=== PATIENT | female | born 1975 | race Two or more races ===

== ENCOUNTER 2020-11-19 23:20 | Emergency (ER) | payer MEDICAID, OTHER ==
[~2020-11-19] VITALS: Ht 160 cm; Wt 74.4 kg
[2020-11-19 23:58] LABS: Basophils # (auto) 0.1 10 ^3/uL (0-0.2); Basophils % (auto) 0.7 % (0.0-2.0); Eosinophils # (auto) 0.2 10 ^3/uL (0-0.8); Eosinophils % (auto) 1.9 % (0.0-7.0); Hematocrit 37.1 % (36.0-46.0); Hemoglobin 12.7 g/dL (12.2-16.2); Lymphocytes # (auto) 3.3 10 ^3/uL (0.4-5.4); Lymphocytes % (auto) 34.2 % (10.0-50.0); Mean Corpuscular Hemoglobin 29.3 pg (28.0-32.0); Mean Corpuscular Hgb Conc. 34.3 g/dL (32.0-36.0); Mean Corpuscular Volume 85.6 fL (80.0-100.0); Monocytes # (auto) 0.5 10 ^3/uL (0-1.3); Monocytes % (auto) 5.6 % (0.0-12.0); Neutrophils # (auto) 5.6 10 ^3/uL (1.6-8.6); Neutrophils % (auto) 57.6 % (37.0-80.0); Platelet Count (auto) 406 10^3/uL (140-450); Red Blood Cells 4.34 10^6/uL (4.0-5.20); Red Cell Distribution Width 13.2 % (11.8-14.3); White Blood Cell 9.7 10^3/uL (4.4-10.8)
[2020-11-20 00:17] LABS: Alanine Aminotransferase 19 U/L (13-56); Albumin 2.9 g/dL (3.4-5.0); Anion Gap 7 (5-15); Aspartate Aminotransferase 10 U/L (15-37); BUN/Creatinine Ratio 15.7; Blood Urea Nitrogen 13 mg/dL (7-18); Calcium 8.4 mg/dL (8.5-10.1); Carbon Dioxide 26 mmol/L (21-32); Chloride 100 mmol/L (98-107); GFR African American 95 mL/min; GFR Non-African American 78 mL/min; Magnesium 2.1 mg/dL (1.6-2.6); Potassium 3.8 mmol/L (3.5-5.1); Sodium 133 mmol/L (136-145)
[2020-11-20 00:22] LABS: Alkaline Phosphatase 130 U/L (45-117); Bilirubin, Total 0.1 mg/dL (0.2-1.0); Total Protein 7.7 g/dL (6.4-8.2)
[2020-11-20 00:47] LABS: Glucose 458 mg/dL (74-106)
[2020-11-20] MEDS ORDERED: SODIUM CHLORIDE 0.9% 2,000 ML IV ONE (01:15)
[2020-11-20] MEDS ORDERED: InsuLIN REG 1unit/0.01ml Soln (100units/ml) SC ONE (01:15)
[2020-11-20] MEDS ORDERED: HYDROcodone-ACET 5/325MG TAB PO ONE (01:30)
[2020-11-20] MEDS ORDERED: cloNIDine HCL 0.1 MG TAB PO ONE ×2 (02:00→04:00)
[2020-11-20 03:12] LABS: Urine Bacteria NONE SEEN /hpf (None Seen); Urine Blood TRACE /uL (Negative); Urine Specific Gravity 1.037 (1.001-1.035); Urine WBC 2 /hpf (0 - 5)
[2020-11-20] MEDS ORDERED: IOHEXOL 300 MG/ML 100ML BOTTLE IJ ONE (07:51)
[2020-11-20 10:21] VITALS: BP 142/68
== END 2020-11-20 10:25 | disposition home or self-care (01) ==
LOC: ER 23:22
DX: R51.9 Headache, unspecified (principal); E11.65 Type 2 diabetes mellitus with hyperglycemia; I16.1 Hypertensive emergency; I10 Essential (primary) hypertension; E78.5 Hyperlipidemia, unspecified
CPT/HCPCS: 36415; 70450; 70460; 71045; 80053; 81001; 82962; 83735; 83880; 84484; 85025; 85049; 93005; 96360; 96361; 96372; 99285; J1815; J7030; Q9967

== ENCOUNTER 2021-12-07 10:53 | Emergency (ER) | payer MEDICAID ==
[~2021-12-07] VITALS: Ht 157.5 cm; Wt 73.7 kg
[2021-12-07 13:07] VITALS: BP 163/79
[2021-12-07] MEDS ORDERED: cefTRIAXone SOD 1,000 MG VL IM ONE (13:45)
[2021-12-07] MEDS ORDERED: HYDROcodone-ACET 5/325MG TAB PO ONE (13:45)
[2021-12-07] MEDS ORDERED: ONDANSETRON ODT 4 MG TAB PO ONE (13:45)
[2021-12-07] MEDS ORDERED: ACE3T PO (14:05)
[2021-12-07] MEDS ORDERED: CEPH-509 PO (14:05)
[2021-12-07] MEDS ORDERED: CYCL-837 PO (14:05)
== END 2021-12-07 14:31 | disposition home or self-care (01) ==
LOC: ER 10:53
DX: S20.211A Contusion of right front wall of thorax, initial encounter (principal); L03.115 Cellulitis of right lower limb; W01.0XXA Fall on same level from slipping, tripping and stumbling without subsequent striking against object, initial encounter; Y93.89 Activity, other specified; Y92.89 Other specified places as the place of occurrence of the external cause; Y99.8 Other external cause status
CPT/HCPCS: 71101; 73630; 96372; 99284; J0696; Q0162

== ENCOUNTER 2024-09-28 09:36 | Day surgery (SDC) | payer OTHER, MEDICAID ==
[2024-09-25 15:22] LABS: Urine Bacteria MANY /hpf (None Seen); Urine Blood TRACE /uL (Negative); Urine Clarity Turbid (Clear); Urine Color Light-Yellow (Yellow); Urine Mucus FEW (None Seen); Urine Protein, UAD 3+ (Negative); Urine Specific Gravity 1.019 (1.001-1.035); Urine Squamous Epithelial Cell MANY /hpf (<5); Urine Urobilinogen Normal (Negative); Urine WBC 27 /HPF (0-5)
[2024-09-25 15:33] LABS: Basophils # (auto) 0 10 ^3/uL (0-0.2); Basophils % (auto) 0.5 % (0.0-2.0); Eosinophils # (auto) 0.1 10 ^3/uL (0-0.8); Hematocrit 34.1 % (36.0-46.0); Hemoglobin 11.5 g/dL (12.2-16.2); Lymphocytes % (auto) 22.7 % (10.0-50.0); Mean Corpuscular Hemoglobin 29.9 pg (28.0-32.0); Mean Corpuscular Hgb Conc. 33.8 g/dL (32.0-36.0); Mean Corpuscular Volume 88.4 fL (80.0-100.0); Monocytes # (auto) 0.5 10 ^3/uL (0-1.3); Monocytes % (auto) 5.7 % (0.0-12.0); Neutrophils # (auto) 6.1 10 ^3/uL (1.6-8.6); Neutrophils % (auto) 70.1 % (37.0-80.0); Nucleated Red Blood Cells % 0.1 %; Platelet Count (auto) 307 10^3/uL (140-450); Red Blood Cells 3.86 10^6/uL (4.0-5.20); Red Cell Distribution Width 13.8 % (11.8-14.3); White Blood Cell 8.7 10^3/uL (4.4-10.8)
[2024-09-25 15:37] LABS: Alanine Aminotransferase 20 U/L (7-40); Albumin 4.1 g/dL (3.2-4.8); Alkaline Phosphatase 107 U/L (46-116); Anion Gap 8 (5-15); BUN/Creatinine Ratio 6.5 (10.0-20.0); Blood Urea Nitrogen 16 mg/dL (9-23); Calcium 9.1 mg/dL (8.7-10.4); Carbon Dioxide 30 mmol/L (20-31); Chloride 101 mmol/L (98-107); Potassium 3.7 mmol/L (3.5-5.1); Sodium 139 mmol/L (136-145); Total Protein 7.4 g/dL (5.7-8.2)
[2024-09-25 15:38] LABS: Bilirubin, Total 0.4 mg/dL (0.2-1.0)
[2024-09-25 15:39] LABS: Aspartate Aminotransferase 12 U/L (13-40); Glucose 239 mg/dL (74-106)
[2024-09-25 15:42] LABS: INR 0.97 (0.9-1.15); Partial Thromboplastin Time 31.2 SEC (24.5-34.5); Prothrombin Time 10.3 sec (9.3-11.8)
[~2024-09-28] VITALS: Ht 157.5 cm; Wt 76.2 kg
[~2024-09-28 09:36] MED LIST: ATOR10TA52 PO; FURO20TA3 PO; INSLANTI SC; INSU100I2 SC; LOSA-533 PO; MET50T GT; NIFE1TAB31 PO; SPIR25TA8 PO
[2024-09-28] MEDS ORDERED: fentaNYL CITRATE 100 MCG/2 ML VL ONE (11:31)
[2024-09-28] MEDS ORDERED: ONDANSETRON HCL 4 MG/2 ML VIAL ONE (11:31)
[2024-09-28] MEDS ORDERED: PROPOFOL 10 MG/ML 20 ML IV ONE (11:31)
[2024-09-28] MEDS ORDERED: GLYCOPYRROLATE 0.2 MG/ML 1ML VIAL ONE (11:31)
[2024-09-28] MEDS ORDERED: MIDAZOLAM HCL 2MG/2ML 2ml VIAL (1mg/ml) ONE (11:31)
[2024-09-28] MEDS ORDERED: LIDOCAINE 2% (LOCAL ANESTH.) PF 5ml SDV ONE ×2 (11:31→12:14)
--- NOTE | 2024-09-28 11:42 | DVHHP2 ---
GI H&P Pre-Op Assessment Date: 09/28/24 Chief complaint: colon cancer screening, upper abdominal pain HPI: per clinic note Past medical history: per clinic note Past surgical history: per clinic note Family history: per clinic note Physical exam: General: NAD, AAOX3 HEENT: PERRL, no scleral icterus, normal hearing, gums without lesions or bleeding, oropharynx clear without erythema or exudate. Neck: Supple without enlargement of the thyroid, or lymphadenopathy. Chest: Normal size and shape, no tenderness, lung [place] clear to auscultation and percussion, nonlabored breathing. Heart: RRR, no murmur Abdomen: non-distended, no tenderness to palpation, +BS, no hepatosplenomegaly Extremities: no edema Neurological: CN II-XII intact, sensation intact in all extremities, 5+ strength in all extremities Skin: No rashes, No jaundice Assessment: - colon cancer screening - upper abdominal pain Plan: - EGD - Colonoscopy - Risks (bleeding, infection, perforation, reaction to sedation medications and cardiopulmonary arrest) and benefit of the procedure were explained to patient. Patient agrees to undergo the procedure. MONSE LAMBERT MD September 28, 2024 11:42
[2024-09-28 12:44] VITALS: PULSE 71; RESP 15; O2SAT 99
--- NOTE | 2024-09-28 12:45 | DVHOP2 ---
Operative Report DATE OF OPERATION: 09/28/24 PROCEDURE: Upper Endoscopy. PREOPERATIVE INDICATION: The patient is a 49 -year-old female undergoing endoscopy for RUQ and epigastric pain. POSTOPERATIVE DIAGNOSES: 1. Mild gastritis. 2. Duodenitis in the bulb PROCEDURE PERFORMED BY: Jose Montes SCOPE: Olympus videoendoscope. ASA CLASS: 4 PREOPERATIVE MEDICATIONS: MAC with Manpreet EMT I/99 PROCEDURE IN DETAIL: After obtaining an informed consent, the patient was place d on left lateral decubitus position. The patient was then sedated with the above medications. A bite block was placed between her teeth. The endoscope was then passed through the oropharynx, into the esophagus, and through the stomach and pylorus up to the second and third part of the duodenum. There was slight duodenitis in the duodenal bulb. There was mild gastritis. Gastric biopsies were obtained using cold forceps. The GE junction was normal appearance at 36 cm. The esophagus was normal in appearance. The endoscope was then withdrawn. The patient tolerated the procedure well without difficulty. COMPLICATIONS : None SPECIMENS: Gastric biopsies DISPOSITION: D/C to home PLAN: 1. Await for biopsy result JOSE MONTES MD September 28, 2024 12:45
--- NOTE | 2024-09-28 12:46 | DVHOP2 ---
Operative Report DATE OF OPERATION: 09/28/24 PROCEDURE: Colonoscopy. PREOPERATIVE INDICATION: The patient is a 49 -year-old female undergoing colonoscopy for colon cancer screening. POSTOPERATIVE DIAGNOSES: 1. A 2 mm polyp in the descending colon was removed with cold forceps. PROCEDURE PERFORMED BY: Jose Montes M.D. SCOPE: Olympus videocolonoscope. ASA CLASS: 4 PREOPERATIVE MEDICATIONS: MAC with Manpreet [employer] DEVELOPER PROCEDURE IN DETAIL: After obtaining an informed consent, the patient was placed on left lateral decubitus position. She was then sedated with the above medications. A rectal examination was performed that was normal. The colonoscope was then passed through the anus into the rectosigmoid and through the descending, transverse, and ascending colon up to the cecum with visualization of the appendiceal orifice, base of the cecum and the ileocecal valve. A 2 mm polyp in the descending colon was removed with cold forceps. The colonoscope was then withdrawn. The patient tolerated the procedure well without difficulty. WITHDRAWAL TIME: 7 minutes QUALITY OF THE PREP: [place] Bowel Prep score: 5 COMPLICATIONS : None SPECIMENS: Colon polyp DISPOSITION: D/C to home PLAN: 1. Repeat colonoscopy base on biopsy result JOSE MONTES MD September 28, 2024 12:46
--- NOTE | 2024-09-28 12:47 | DVHDS2 ---
Physician Discharge Progress N Final Diagnosis: Duodenitis, gastritis Colon polyp Operations or Procedures: Operations or Procedures EGD with cold forceps biopsy Colonoscopy with cold forceps polypectomy Condition on Discharge: Good Disposition: Home Discharge Instructions: Diet: Regular Activity: No Restrictions, As Tolerated Medications: Resume with previous home medications Follow Up Care: Discharge Statement: "Patient was advised to return to the ER or call 911 if any headaches, dizziness, shortness of breath, chest pain, abdominal pain, bleeding, fevers, or worsening of medical condition. Patient was counseled about treatment plan, medications, possible side effects, patientverbalized understanding. All questions were answered to the best of my ability. This discharge took greater then 30 minutes in planning, reviewing documentation, counseling the patient, and discussing with other team members." MONSE LAMBERT MD September 28, 2024 12:47
[2024-09-28 13:30] VITALS: BP 158/74; PULSE 73; RESP 14; O2SAT 99
== END 2024-09-28 13:35 | disposition home or self-care (01) ==
LOC: GI 09:36
PROVIDERS: ATTEND Internal Medicine Gastroenterology
DX: Z12.11 Encounter for screening for malignant neoplasm of colon (principal); D12.5 Benign neoplasm of sigmoid colon; K29.80 Duodenitis without bleeding; K29.50 Unspecified chronic gastritis without bleeding; R10.10 Upper abdominal pain, unspecified; R10.13 Epigastric pain; E11.22 Type 2 diabetes mellitus with diabetic chronic kidney disease; N18.6 End stage renal disease; I12.0 Hypertensive chronic kidney disease with stage 5 chronic kidney disease or end stage renal disease; E11.40 Type 2 diabetes mellitus with diabetic neuropathy, unspecified; E66.3 Overweight; Z68.29 Body mass index [BMI] 29.0-29.9, adult; Z79.899 Other long term (current) drug therapy; Z79.84 Long term (current) use of oral hypoglycemic drugs
CPT/HCPCS: 36415; 43239; 45385; 80053; 81001; 82962; 85025; 85610; 85730; 88305; 88312; 88342; J2003; J2405; J2704; 45380; J2250